=== PATIENT | female | born 1965 | race African-American/Black ===

== ENCOUNTER 2016-11-28 09:45 | Emergency (ER) | payer OTHER ==
[~2016-11-28] VITALS: Ht 172.7 cm; Wt 61.7 kg
[2016-11-28 09:53] VITALS: BP 105/63
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
--- NOTE | 2016-11-28 11:21 | RAD ---
Indication fall, pain. AP and lateral views of the left femur were obtained. No bony abnormality is seen.
--- NOTE | 2016-11-28 11:21 | RAD ---
Indication fall, pain. AP oblique and lateral images of the left foot were obtained. No bony abnormality is seen.
--- NOTE | 2016-11-28 11:23 | RAD ---
Indication fall, pain. AP oblique and lateral views of the left knee were obtained. A sunrise view was also obtained. No bony abnormality is seen
[2016-11-28] MEDS ORDERED: ACETAMINOPHEN 325 MG TABLET. PO ONE (12:00)
== END 2016-11-28 11:48 | disposition home or self-care (01) ==
LOC: ER 09:45
DX: M79.605 Pain in left leg (principal); M25.562 Pain in left knee; M79.672 Pain in left foot; I10 Essential (primary) hypertension; Z88.8 Allergy status to other drugs, medicaments and biological substances; Z88.6 Allergy status to analgesic agent; Z59.0 Homelessness; W18.39XA Other fall on same level, initial encounter; Y93.89 Activity, other specified; Y92.89 Other specified places as the place of occurrence of the external cause; Y99.8 Other external cause status
CPT/HCPCS: 73552; 73564; 73630; 99284